=== PATIENT | female | born 1960 | race Caucasian/White ===

== ENCOUNTER → 2017-12-05 | Outpatient (CLI) | payer BC | END | disposition home or self-care (01) | LOC: Rad HDHVI 14:01 | PROVIDERS: ATTEND Internal Medicine Cardiovascular Disease | DX: E11.21 Type 2 diabetes mellitus with diabetic nephropathy (principal); I73.9 Peripheral vascular disease, unspecified; R07.89 Other chest pain; M54.5 Low back pain | CPT/HCPCS: 93306; 93926 ==

== ENCOUNTER → 2017-12-18 | Outpatient (CLI) | payer BC | END | disposition home or self-care (01) | LOC: Rad HDHVI 12:32 | PROVIDERS: ATTEND Internal Medicine Cardiovascular Disease | DX: M25.551 Pain in right hip (principal); M25.552 Pain in left hip ==

== ENCOUNTER → 2018-10-08 | Outpatient (CLI) | payer BC ==
[2018-10-08 12:36] LABS: Basophils # (auto) 0.1 uL; Basophils % (auto) 0.8 % (0.0-2.0); Eosinophils # (auto) 0.2 uL; Eosinophils % (auto) 2.3 % (0.0-7.0); Hematocrit 39.3 % (36.0-46.0); Hemoglobin 13.2 g/dL (12.2-16.2); Lymphocytes % (auto) 26.9 % (10.0-50.0); Mean Corpuscular Hemoglobin 30.4 pg (28.0-32.0); Mean Corpuscular Hgb Conc. 33.5 g/dL (32.0-36.0); Mean Corpuscular Volume 90.7 fL (80.0-100.0); Monocytes # (auto) 0.7 uL; Monocytes % (auto) 9.2 % (0.0-12.0); Neutrophils # (auto) 4.4 uL; Neutrophils % (auto) 60.8 % (37.0-80.0); Platelet Count (auto) 173 10^3/uL (140-450); Red Blood Cells 4.33 10^6/uL (4.0-5.20); White Blood Cell 7.3 10^3/uL (4.4-10.8)
[2018-10-08 12:48] LABS: Urine Blood Negative /uL (Negative); Urine Specific Gravity 1.014 (1.001-1.035)
[2018-10-08 13:31] LABS: Potassium 3.9 mmol/L (3.5-5.1)
[2018-10-08 13:32] LABS: Free T4 (Free Thyroxine) 1.25 ng/dL (0.89-1.76)
[2018-10-08 13:51] LABS: Albumin 3.2 g/dL (3.4-5.0); BUN/Creatinine Ratio 15.9; Bilirubin, Total 0.6 mg/dL (0.2-1.0); Calcium 8.6 mg/dL (8.5-10.1); Total Protein 7.5 g/dL (6.4-8.2)
== END | disposition home or self-care (01) ==
LOC: LAB 09:03
PROVIDERS: ATTEND Internal Medicine Cardiovascular Disease
DX: E11.22 Type 2 diabetes mellitus with diabetic chronic kidney disease (principal); N18.4 Chronic kidney disease, stage 4 (severe); N25.81 Secondary hyperparathyroidism of renal origin; E03.9 Hypothyroidism, unspecified; E11.9 Type 2 diabetes mellitus without complications; E55.9 Vitamin D deficiency, unspecified; D51.9 Vitamin B12 deficiency anemia, unspecified; N39.0 Urinary tract infection, site not specified
CPT/HCPCS: 36415; 80053; 80061; 80069; 81003; 82043; 82306; 82607; 83036; 83970; 84439; 84443; 85025; 87086

== ENCOUNTER → 2018-12-31 | Outpatient (CLI) | payer BC ==
[2018-12-31 16:20] LABS: Basophils # (auto) 0.1 uL; Basophils % (auto) 1.2 % (0.0-2.0); Eosinophils # (auto) 0.2 uL; Eosinophils % (auto) 2.7 % (0.0-7.0); Hematocrit 36.9 % (36.0-46.0); Hemoglobin 12.3 g/dL (12.2-16.2); Lymphocytes # (auto) 1.5 uL; Lymphocytes % (auto) 26.7 % (10.0-50.0); Mean Corpuscular Hemoglobin 30.8 pg (28.0-32.0); Mean Corpuscular Hgb Conc. 33.4 g/dL (32.0-36.0); Mean Corpuscular Volume 92.2 fL (80.0-100.0); Monocytes # (auto) 0.5 uL; Monocytes % (auto) 8.9 % (0.0-12.0); Neutrophils # (auto) 3.4 uL; Neutrophils % (auto) 60.5 % (37.0-80.0); Platelet Count (auto) 196 10^3/uL (140-450); Red Cell Distribution Width 14.3 % (11.8-14.3); White Blood Cell 5.6 10^3/uL (4.4-10.8)
[2018-12-31 16:32] LABS: BUN/Creatinine Ratio 15.9; Calcium 9.6 mg/dL (8.5-10.1); Phosphorus 4.1 mg/dL (2.5-4.90); Potassium 4.3 mmol/L (3.5-5.1); Uric Acid 4.1 mg/dL (2.6-6.0)
== END | disposition home or self-care (01) ==
LOC: LAB 11:27
PROVIDERS: ATTEND Internal Medicine Cardiovascular Disease
DX: E11.21 Type 2 diabetes mellitus with diabetic nephropathy (principal); E11.22 Type 2 diabetes mellitus with diabetic chronic kidney disease; N18.4 Chronic kidney disease, stage 4 (severe); M10.9 Gout, unspecified; N25.81 Secondary hyperparathyroidism of renal origin
CPT/HCPCS: 36415; 80069; 82043; 82306; 83036; 83970; 84550; 85025

== ENCOUNTER → 2019-04-18 | Outpatient (CLI) | payer BC ==
[2019-04-18 11:48] LABS: Basophils # (auto) 0.1 uL; Basophils % (auto) 0.7 % (0.0-2.0); Eosinophils # (auto) 0.1 uL; Eosinophils % (auto) 1.4 % (0.0-7.0); Hematocrit 37.9 % (36.0-46.0); Hemoglobin 13.1 g/dL (12.2-16.2); Lymphocytes # (auto) 1.9 uL; Lymphocytes % (auto) 26.3 % (10.0-50.0); Mean Corpuscular Hgb Conc. 34.6 g/dL (32.0-36.0); Mean Corpuscular Volume 92.6 fL (80.0-100.0); Monocytes # (auto) 0.7 uL; Monocytes % (auto) 9.4 % (0.0-12.0); Neutrophils # (auto) 4.6 uL; Neutrophils % (auto) 62.2 % (37.0-80.0); Platelet Count (auto) 170 10^3/uL (140-450); Red Blood Cells 4.09 10^6/uL (4.0-5.20); Red Cell Distribution Width 14.2 % (11.8-14.3); White Blood Cell 7.3 10^3/uL (4.4-10.8)
[2019-04-18 11:59] LABS: Chloride 106 mmol/L (98-107); Potassium 4.3 mmol/L (3.5-5.1); Sodium 137 mmol/L (136-145)
[2019-04-18 12:10] LABS: Alanine Aminotransferase 29 U/L (13-56); Albumin 3.1 g/dL (3.4-5.0); Alkaline Phosphatase 131 U/L (45-117); Anion Gap 10 (5-15); Aspartate Aminotransferase 16 U/L (15-37); BUN/Creatinine Ratio 15.3; Bilirubin, Total 0.3 mg/dL (0.2-1.0); Blood Urea Nitrogen 33 mg/dL (7-18); Calcium 8.8 mg/dL (8.5-10.1); Carbon Dioxide 21 mmol/L (21-32); Cholesterol 92 mg/dL (< 200); GFR African American 30 mL/min; GFR Non-African American 25 mL/min; Glucose 334 mg/dL (74-106); HDL Cholesterol 27 mg/dL (40-59); Phosphorus 3.9 mg/dL (2.5-4.90); Total Protein 7.3 g/dL (6.4-8.2); Triglycerides 412 mg/dL (< 150)
== END | disposition home or self-care (01) ==
LOC: LAB 10:57
PROVIDERS: ATTEND Internal Medicine Cardiovascular Disease
DX: I12.9 Hypertensive chronic kidney disease with stage 1 through stage 4 chronic kidney disease, or unspecified chronic kidney disease (principal); E11.22 Type 2 diabetes mellitus with diabetic chronic kidney disease; N18.4 Chronic kidney disease, stage 4 (severe); M1A.39X0 Chronic gout due to renal impairment, multiple sites, without tophus (tophi)
CPT/HCPCS: 36415; 80053; 80061; 80069; 82043; 83036; 85025

== ENCOUNTER → 2019-06-06 | Outpatient (CLI) | payer BC ==
[2019-06-06 12:00] LABS: Urine Blood Negative /uL (Negative); Urine Specific Gravity 1.013 (1.001-1.035)
[2019-06-06 12:05] LABS: Basophils # (auto) 0.1 uL; Basophils % (auto) 0.8 % (0.0-2.0); Eosinophils # (auto) 0.1 uL; Eosinophils % (auto) 1.8 % (0.0-7.0); Hematocrit 38.8 % (36.0-46.0); Hemoglobin 12.9 g/dL (12.2-16.2); Lymphocytes # (auto) 2.1 uL; Lymphocytes % (auto) 28.5 % (10.0-50.0); Mean Corpuscular Hemoglobin 31.6 pg (28.0-32.0); Mean Corpuscular Hgb Conc. 33.3 g/dL (32.0-36.0); Mean Corpuscular Volume 94.7 fL (80.0-100.0); Monocytes # (auto) 0.7 uL; Monocytes % (auto) 9.3 % (0.0-12.0); Neutrophils # (auto) 4.4 uL; Neutrophils % (auto) 59.6 % (37.0-80.0); Nucleated Red Blood Cells % 0.1 %; Platelet Count (auto) 184 10^3/uL (140-450); Red Cell Distribution Width 14.1 % (11.8-14.3); White Blood Cell 7.5 10^3/uL (4.4-10.8)
[2019-06-06 12:10] LABS: Albumin 3.3 g/dL (3.4-5.0); Calcium 8.9 mg/dL (8.5-10.1); Potassium 4.6 mmol/L (3.5-5.1)
[2019-06-06 12:16] LABS: BUN/Creatinine Ratio 19.5; Bilirubin, Total 0.3 mg/dL (0.2-1.0); Total Protein 7.7 g/dL (6.4-8.2)
[2019-06-06 12:21] LABS: Free T4 (Free Thyroxine) 0.82 ng/dL (0.89-1.76)
== END | disposition home or self-care (01) ==
LOC: LAB 09:56
PROVIDERS: ATTEND Internal Medicine Cardiovascular Disease
DX: Z00.00 Encounter for general adult medical examination without abnormal findings (principal); E03.9 Hypothyroidism, unspecified; K90.9 Intestinal malabsorption, unspecified; N39.0 Urinary tract infection, site not specified; D51.9 Vitamin B12 deficiency anemia, unspecified; E11.21 Type 2 diabetes mellitus with diabetic nephropathy; Z79.899 Other long term (current) drug therapy
CPT/HCPCS: 36415; 80053; 80061; 81003; 82306; 82607; 83036; 84439; 84443; 85025

== ENCOUNTER → 2019-12-30 | Outpatient (CLI) | payer BC | END | disposition home or self-care (01) | LOC: LAB 11:14 | PROVIDERS: ATTEND Internal Medicine Cardiovascular Disease | DX: E11.9 Type 2 diabetes mellitus without complications (principal); Z79.899 Other long term (current) drug therapy | CPT/HCPCS: 36415; 83036 ==

== ENCOUNTER → 2022-08-08 | Outpatient (CLI) | payer MEDICAID, MEDICARE | END | disposition home or self-care (01) | LOC: Rad HDHVI 16:02 | PROVIDERS: ATTEND Internal Medicine Cardiovascular Disease | DX: R16.0 Hepatomegaly, not elsewhere classified (principal); K80.20 Calculus of gallbladder without cholecystitis without obstruction; I70.0 Atherosclerosis of aorta; J84.89 Other specified interstitial pulmonary diseases; M47.26 Other spondylosis with radiculopathy, lumbar region; M51.16 Intervertebral disc disorders with radiculopathy, lumbar region; M85.89 Other specified disorders of bone density and structure, multiple sites; M48.061 Spinal stenosis, lumbar region without neurogenic claudication; M25.78 Osteophyte, vertebrae; K57.90 Diverticulosis of intestine, part unspecified, without perforation or abscess without bleeding; R06.02 Shortness of breath | CPT/HCPCS: 71250; 72128; 72131; 74176 ==

== ENCOUNTER → 2023-06-01 | Outpatient (CLI) | payer MEDICARE, MEDICAID | END | disposition home or self-care (01) | LOC: Rad HDHVI 09:43 | PROVIDERS: ATTEND Internal Medicine Cardiovascular Disease | DX: I08.1 Rheumatic disorders of both mitral and tricuspid valves (principal); I11.9 Hypertensive heart disease without heart failure; E78.5 Hyperlipidemia, unspecified | CPT/HCPCS: 93306 ==

== ENCOUNTER → 2023-06-13 | Outpatient (CLI) | payer MEDICARE, MEDICAID ==
[~2023-06-13] VITALS: Ht 170.2 cm; Wt 74.8 kg
[~2023-06-13] MED LIST: ADENOSINE 63 MG in GIVE UN-DILUTED 0 ML IV ONE; ADENOSINE 90 MG/30 ML INJ IV ONE
== END | disposition home or self-care (01) ==
LOC: Rad HDHVI 12:14
PROVIDERS: ATTEND Internal Medicine Cardiovascular Disease
DX: I11.0 Hypertensive heart disease with heart failure (principal); I50.43 Acute on chronic combined systolic (congestive) and diastolic (congestive) heart failure; E11.40 Type 2 diabetes mellitus with diabetic neuropathy, unspecified; R06.02 Shortness of breath; R00.2 Palpitations; E11.21 Type 2 diabetes mellitus with diabetic nephropathy
CPT/HCPCS: 78452; 93005; 96374; 96375; A9500; J0153

== ENCOUNTER → 2023-07-12 | Outpatient (CLI) | payer MEDICARE, MEDICAID ==
[~2023-07-12] MED LIST changes: -ADENOSINE 63 MG in GIVE UN-DILUTED 0 ML IV ONE; -ADENOSINE 90 MG/30 ML INJ IV ONE; +ALLO300T2 PO; +CARV25TA PO; +ERGO1CAP23 PO; +HYDR-4798 PO; +INSU1INJ19 SC; +METO-281 PO; +POM PO
[2023-07-12 12:25] VITALS: BP 151/69; PULSE 88; RESP 16; O2SAT 97
[2023-07-12 12:38] VITALS: BP 149/75; PULSE 88; RESP 16; O2SAT 97
== END | disposition home or self-care (01) ==
LOC: CHF HDHVI 12:18
PROVIDERS: ATTEND Internal Medicine Cardiovascular Disease
DX: Z01.818 Encounter for other preprocedural examination (principal); R06.02 Shortness of breath; R94.31 Abnormal electrocardiogram [ECG] [EKG]; R00.2 Palpitations; I25.5 Ischemic cardiomyopathy; I50.43 Acute on chronic combined systolic (congestive) and diastolic (congestive) heart failure
CPT/HCPCS: 36415; 80048; 85025; 85610; 85730; 93005; G0463

== ENCOUNTER 2023-07-13 07:12 | Day surgery (SDC) | payer MEDICARE, MEDICAID ==
[2023-07-12 14:04] LABS: Chloride 91 mmol/L (98-107); Potassium 4.3 mmol/L (3.5-5.1); Sodium 133 mmol/L (136-145)
[2023-07-12 14:05] LABS: Anion Gap 10 (5-15); Calcium 10.5 mg/dL (8.5-10.1); Carbon Dioxide 32 mmol/L (20-30)
[2023-07-12 14:06] LABS: Basophils # (auto) 0 10 ^3/uL (0-0.2); Eosinophils # (auto) 0.1 10 ^3/uL (0-0.8); Lymphocytes # (auto) 0.8 10 ^3/uL (0.4-5.4); Mean Corpuscular Volume 107.4 fL (80.0-100.0); Monocytes # (auto) 0.7 10 ^3/uL (0-1.3); Neutrophils # (auto) 5.8 10 ^3/uL (1.6-8.6); White Blood Cell 7.4 10^3/uL (4.4-10.8)
[2023-07-12 14:08] LABS: Basophils % (auto) 0.6 % (0.0-2.0); Hematocrit 35.5 % (36.0-46.0); Mean Corpuscular Hemoglobin 36.3 pg (28.0-32.0); Mean Corpuscular Hgb Conc. 33.8 g/dL (32.0-36.0); Monocytes % (auto) 9.9 % (0.0-12.0); Neutrophils % (auto) 77.5 % (37.0-80.0); Red Cell Distribution Width 13.8 % (11.8-14.3)
[2023-07-12 14:10] LABS: BUN/Creatinine Ratio 4.3 (10.0-20.0); Blood Urea Nitrogen 20 mg/dL (9-23); Glucose 212 mg/dL (74-106)
[2023-07-12 14:12] LABS: INR 1.02 (0.9-1.15); Partial Thromboplastin Time 27.2 SEC (24.5-34.5); Prothrombin Time 10.7 sec (9.3-11.8)
[2023-07-13] VITALS (8 sets, daily range): BP systolic 117–139; BP diastolic 69–80; PULSE 76–87; RESP 15–20; O2SAT 92–100
[~2023-07-13] VITALS: Ht 170.2 cm; Wt 80.7 kg
[2023-07-13] MEDS ORDERED: SODIUM CHL 0.9% 0 ML ONE (08:21)
[2023-07-13] MEDS ORDERED: fentaNYL CITRATE 100 MCG/2 ML VL ONE (08:21)
[2023-07-13] MEDS ORDERED: ANGIOMAX 250 MG VIAL IV ONE (08:21)
[2023-07-13] MEDS ORDERED: MIDAZOLAM HCL 2MG/2ML 2ml VIAL (1mg/ml) ONE (08:21)
[2023-07-13] MEDS ORDERED: IODIXANOL 320MG/ML 100ML BTL IV ONE (08:21)
[2023-07-13] MEDS ORDERED: IOHEXOL 350 MG/ML 100ML IJ ONE (08:58)
[2023-07-13] MEDS ORDERED: LIDOCAINE 2%HCL (LOCAL ANESTH.) INJ 20ML MDV ONE (08:58)
== END 2023-07-13 11:05 | disposition home or self-care (01) ==
LOC: CATH 07:12
PROVIDERS: ATTEND Internal Medicine Cardiovascular Disease
DX: R06.02 Shortness of breath (principal); I27.20 Pulmonary hypertension, unspecified; E11.22 Type 2 diabetes mellitus with diabetic chronic kidney disease; I12.0 Hypertensive chronic kidney disease with stage 5 chronic kidney disease or end stage renal disease; N18.6 End stage renal disease; E11.40 Type 2 diabetes mellitus with diabetic neuropathy, unspecified; E11.21 Type 2 diabetes mellitus with diabetic nephropathy; E78.5 Hyperlipidemia, unspecified; Z79.899 Other long term (current) drug therapy; Z82.49 Family history of ischemic heart disease and other diseases of the circulatory system; Z79.84 Long term (current) use of oral hypoglycemic drugs
CPT/HCPCS: 36415; 80048; 85025; 85610; 85730; C1757; C1769; C1894; J1644; J2250; J3010; Q9967; 93460; 99152

== ENCOUNTER → 2023-09-14 | Outpatient (CLI) | payer MEDICARE, MEDICAID | END | disposition home or self-care (01) | LOC: Rad HDHVI 13:35 | PROVIDERS: ATTEND Internal Medicine Cardiovascular Disease | DX: I10 Essential (primary) hypertension (principal); R07.89 Other chest pain | CPT/HCPCS: 93306 ==

== ENCOUNTER → 2023-12-19 | Outpatient (CLI) | payer MEDICARE, MEDICAID ==
[~2023-12-19] MED LIST changes: +CARV-217 PO; -CARV25TA PO
== END | disposition home or self-care (01) ==
LOC: Rad HDHVI 10:02
PROVIDERS: ATTEND Internal Medicine Cardiovascular Disease
DX: R06.02 Shortness of breath (principal)
CPT/HCPCS: 71046

== ENCOUNTER → 2024-02-08 | Outpatient (CLI) | payer MEDICARE, MEDICAID | END | disposition home or self-care (01) | LOC: Rad HDHVI 15:03 | PROVIDERS: ATTEND Internal Medicine Cardiovascular Disease | DX: I10 Essential (primary) hypertension (principal) | CPT/HCPCS: 93306 ==

== ENCOUNTER 2024-05-21 12:12 | Inpatient (IN) | payer MEDICARE ==
[~2024-05-21] VITALS: Ht 171.4 cm; Wt 82.0 kg
--- NOTE | 2024-05-21 14:13 | DVHPN2 ---
Progress Note - Dictate Date Seen: May 21, 2024 Medical Necessity Reason Pt with a Central, PICC or Fol: No Subjective PT PRESENTED TO OFFICE WITH SEVERE ABNL PAIN RIGHT UPPER QUADRANT TENDERNESS CT CONSISTENT WITH CHOLELITHIASIS PMH; HTN PAH DIABETES objective HEENT SCLERA ANICTERIC FUNDI NL EOMI NECK SUPPLE NO ADENOPATHY CAROTID 2+ NL UPSTROKE NO JVD PUL CLEAR CV RR ABD RUQ TENDERNESS NO REBOUND NEURO INTACT Problem List RIGHT UPPER QUADRANT TENDERNESS CT CONSISTENT WITH CHOLELITHIASIS PMH; HTN PAH DIABETES ESRD ON HD Assessment/Plan ANTIBIOTIC SURGICAL CONSULT PAIN MANAGEMENT SSI Plan discussed with: Patient JOSSY BANEGAS MD May 21, 2024 14:13
[2024-05-21] MEDS ORDERED: CARV12.544 PO (14:41)
[2024-05-21] MEDS ORDERED: INSU1INJ19 SC (14:41)
[2024-05-21] MEDS ORDERED: RIOC1TAB15 PO (14:41)
[2024-05-21] MEDS ORDERED: PIPERACILLIN-TAZO 4.5GM 100 ML IV SCH ×3 (14:45→22:00)
[2024-05-21] MEDS ORDERED: MACI1TAB2 PO (14:54)
[2024-05-21] MEDS ORDERED: FURO1TAB77 PO (14:54)
[2024-05-21] MEDS ORDERED: HYDROcodone-ACET 7.5/325MG TAB PO PRN (15:00)
[2024-05-21] MEDS ORDERED: CALC667C PO (15:27)
[2024-05-21] MEDS ORDERED: PIPERACILLIN-TAZO 4.5GM 100 ML IV ONE (15:30)
[2024-05-21 15:33] VITALS: PULSE 105; RESP 19; O2SAT 94
[2024-05-21] MEDS ORDERED: DEXTROSE (50%) 50ML SYRG IV PRN (16:15)
[2024-05-21 17:00] VITALS: BP 130/57; PULSE 97; RESP 17; TEMP 98.5; O2SAT 93
[2024-05-21] MEDS: ACCU-CHEK COMFORT CURVE STRIP VI SCH (17:50)
[2024-05-21] MEDS: D5W/SOD CHL 0.45% 1,000 ML IV SCH (17:51)
[2024-05-21] MEDS: PIPERACILLIN-TAZO 4.5GM 100 ML IV ONE (17:51)
[2024-05-21] MEDS: InsuLIN REG 1unit/0.01ml Soln (100units/ml) SC SCH ×2 (17:53→22:09)
--- NOTE | 2024-05-21 18:16 | DVH ---
EXAM: XY CHEST PORTABLE TECHNIQUE: Single frontal chest radiograph CLINICAL HISTORY: acute cholecystitis COMPARISON: None Findings/Impression: Frontal chest radiograph demonstrates no acute osseous or superficial soft tissue abnormalities. The trachea is midline. The cardiac silhouette and mediastinum are within normal limits. Mild low lung volumes with bronchovascular crowding. No pneumothorax, pleural effusions, or consolidations.
[2024-05-21 18:38] LABS: Eosinophils # (auto) 0.1 10 ^3/uL (0-0.8); Hemoglobin 10.7 g/dL (12.2-16.2); Lymphocytes # (auto) 1.2 10 ^3/uL (0.4-5.4); Monocytes # (auto) 1.2 10 ^3/uL (0-1.3)
[2024-05-21 18:39] LABS: Basophils # (auto) 0 10 ^3/uL (0-0.2); Basophils % (auto) 0.3 % (0.0-2.0); Eosinophils % (auto) 0.8 % (0.0-7.0); Hematocrit 31.9 % (36.0-46.0); Lymphocytes % (auto) 10.4 % (10.0-50.0); Mean Corpuscular Hemoglobin 34.2 pg (28.0-32.0); Mean Corpuscular Hgb Conc. 33.6 g/dL (32.0-36.0); Mean Corpuscular Volume 101.8 fL (80.0-100.0); Monocytes % (auto) 10.5 % (0.0-12.0); Platelet Count (auto) 211 10^3/uL (140-450); Red Blood Cells 3.13 10^6/uL (4.0-5.20); Red Cell Distribution Width 15.7 % (11.8-14.3); White Blood Cell 11.5 10^3/uL (4.4-10.8)
[2024-05-21 18:46] LABS: Albumin 3.8 g/dL (3.2-4.8); Alkaline Phosphatase 137 U/L (46-116); Anion Gap 10 (5-15); Aspartate Aminotransferase < 8 U/L (13-40); BUN/Creatinine Ratio 5.5 (10.0-20.0); Blood Urea Nitrogen 41 mg/dL (9-23); Calcium 10.2 mg/dL (8.7-10.4); Carbon Dioxide 25 mmol/L (20-31); Chloride 94 mmol/L (98-107); Glucose 251 mg/dL (74-106); Potassium 3.9 mmol/L (3.5-5.1); Sodium 129 mmol/L (136-145)
[2024-05-21 18:47] LABS: Bilirubin, Total < 0.2 mg/dL (0.2-1.0); Total Protein 6.8 g/dL (5.7-8.2)
[2024-05-21 18:48] LABS: Alanine Aminotransferase < 9 U/L (7-40)
[2024-05-21 18:49] LABS: INR 1.02 (0.9-1.15); Partial Thromboplastin Time 28.4 SEC (24.5-34.5); Prothrombin Time 10.8 sec (9.3-11.8)
[2024-05-21 20:00] VITALS: PULSE 100; RESP 18; O2SAT 90
[2024-05-21 21:00] VITALS: BP 129/64; PULSE 100; RESP 18; TEMP 98.7; O2SAT 90
[2024-05-21] MEDS: PIPERACILLIN-TAZOB 3.375GM 100 ML IV SCH (21:51)
[2024-05-21] MEDS: CARVEDILOL 12.5 MG TAB PO SCH (21:55)
[2024-05-21] MEDS: METOCLOPRAMIDE HCL 10 MG TAB PO SCH (21:56)
[2024-05-21] MEDS: ADEMPAS 0.5 MG PO SCH (22:11)
[2024-05-22 06:15] VITALS: BP 130/61; PULSE 87; RESP 18; TEMP 98.6; O2SAT 94
[2024-05-22] MEDS: glipiZIDE 5 MG TAB PO SCH (06:21)
--- NOTE | 2024-05-22 10:20 | DVH ---
ULTRASOUND ABDOMEN LIMITED INDICATION: Abdominal pain.. TECHNIQUE: Multiple real-time sonographic images of the abdomen were obtained. COMPARISON: CT abdomen 05/21/2024 FINDINGS: The visualized liver parenchyma appears echogenic . The liver measures 20.8 cm. No discrete hepa tic lesion or intrahepatic biliary ductal dilatation is identified. The gallbladder appears contracted with gallstones. There is acoustic shadowing in the gallbladder fo ssa. There is no obvious pericholecystic fluid. The common duct is not adequately seen. The right kidney measures 10.6 cm length. Left kidney measures 10.2 cm. Both renal cortex appear thi n. There is a 0.8 cm cyst in the midpole of the right kidney. No sonographic evidence of nephrolithia sis or hydronephrosis. Pancreas is obscured by bowel gas. IMPRESSION: 1. Hepatomegaly with diffuse hepatic steatosis. 2. Contracted gallbladder with cholelithiasis. 3. The bilateral renal cortex appear thin. 4. 0.8 cm right midpole renal cyst. HS:Y
[2024-05-22 10:30] VITALS: BP 129/61; PULSE 98; RESP 17; TEMP 98.1; O2SAT 99
[2024-05-22] MEDS: B-COMPLEX W/ C & FOLIC ACID(NEPHROVITE TAB) PO SCH (11:00)
[2024-05-22] MEDS: ALLOPURINOL 100 MG TAB PO SCH (11:00)
[2024-05-22 13:07] VITALS: BP 138/70; PULSE 89; RESP 16; TEMP 98.3; O2SAT 96
--- NOTE | 2024-05-22 13:23 | DVHPN2 ---
Progress Note - Dictate Date Seen: May 22, 2024 Medical Necessity Reason Pt with a Central, PICC or Fol: No Subjective PT PRESENTED TO OFFICE WITH SEVERE ABNL PAIN RIGHT UPPER QUADRANT TENDERNESS CT CONSISTENT WITH CHOLELITHIASIS PMH; HTN PAH DIABETES ESRD ON HD vital signs Vital Sign Date Time Temp Pulse Resp B/P (MAP) Pulse Ox O2 Delivery O2 Flow Rate FiO2 05/22/24 13:07 98.3 89 16 138/70 (92) 96 98.3 05/22/24 08:00 Room Air* 0 21 Total Intake and Output 05/21/24 05/21/24 05/22/24 15:00 23:00 07:00 Intake Total 300 ml 400 ml Balance 300 ml 400 ml medications Current Medications Medications Dose Ordered Sig/Hector Route Start Time Stop Time Status Last Admin Dose Admin Piperacillin Sod/ Tazobactam Sod 100 ml @ 100 mls/hr Q8HR IV 05/21/24 14:45 UNV Carvedilol 12.5 mg BID PO 05/21/24 22:00 05/22/24 11:00 12.5 MG Multivit/Ca Carb/ B Cmplx/FA/Prenat 1 tab DAILY PO 05/22/24 10:00 05/22/24 11:00 1 TAB Allopurinol 300 mg DAILY PO 05/22/24 10:00 05/22/24 11:00 300 MG Metoclopramide HCl 10 mg BID PO 05/21/24 22:00 05/22/24 11:00 10 MG Patient Own Medication 1 BID PO 05/21/24 22:00 05/22/24 11:00 1 Patient Own Medication 1 DAILY PO 05/22/24 10:00 05/22/24 11:00 1 Glipizide 2.5 mg QAM PO 05/22/24 07:00 05/22/24 06:21 2.5 MG Dextrose/Sodium Chloride 1,000 ml @ 50 mls/hr Q20H IV 05/21/24 16:15 05/21/24 17:51 50 MLS/HR Diagnostic Test (Pha) 1 strip ACHS 05/21/24 17:00 05/22/24 11:07 1 STRIP Insulin Human Regular HS SC 05/21/24 22:00 05/21/24 22:09 8 UNITS Insulin Human Regular AC SC 05/21/24 17:00 05/22/24 11:31 6 UNITS Dextrose 50 ml UD PRN IV 05/21/24 16:15 Acetaminophen/ Hydrocodone Bitart 1 tab TIDP PRN PO 05/21/24 16:15 Piperacillin Sod/ Tazobactam Sod 100 ml @ 25 mls/hr Q12HR IV 05/21/24 22:00 05/22/24 11:00 25 MLS/HR objective HEENT SCLERA ANICTERIC FUNDI NL EOMI NECK SUPPLE NO ADENOPATHY CAROTID 2+ NL UPSTROKE NO JVD PUL CLEAR CV RR ABD RUQ TENDERNESS NO REBOUND NEURO INTACT laboratory and microbiology Laboratory Tests 05/21/24 18:02 Test 05/21/24 18:02 Range/Units Serum Glucose 251 H 74-106 mg/dL Problem List RIGHT UPPER QUADRANT TENDERNESS CT CONSISTENT WITH CHOLELITHIASIS PMH; HTN PAH DIABETES ERSD ON HD HYPONATREMIA Assessment/Plan ANTIBIOTIC SURGICAL CONSULT PAIN MANAGEMENT SSI LEUKOCYTOSIS Plan discussed with: Patient JOSSY BANEGAS MD May 22, 2024 13:23
[2024-05-22] MEDS: SODIUM CHL 0.9% 1000 ML BAG XX ONE (15:00)
--- NOTE | 2024-05-22 15:02 | DVHINCON2 ---
Date of service: May 22, [address] Meek Reason for Consultation Dialysis History of Present Illness 63 Y/O F with history of ESRD on HD via Lt arm AVF, DM,HTN, anemia of CKD was sent from PCP office for cholecystectomy. She was complaining of RUQ abdominal pain, and also had tenderness. CT A/P consistent with cholecystitis. Dialysis schedule is [facility]. She had her last dialysis on Monday. Nephrology consulted for dialysis Past Medical History ESRD DM HTN Anemia Past Surgical History AVF creation Allergies: Coded Allergies: Codeine (Verified Allergy, Unknown, 07/12/23) Home Meds Reported Medications Calcium Acetate (Phosphate Bin (Calcium Acetate) 667 Mg Cap, 1334 MG PO TIDWM, CAP WITH MEALS 05/21/24 Macitentan (Opsumit) 10 Mg Tab, 10 MG PO DAILY, TAB 05/21/24 Furosemide (Furosemide 80 mg) 1 Tab Tab, 1 TAB PO DAILY, TAB 05/21/24 Carvedilol (Carvedilol) 12.5 Mg Tab, 12.5 MG PO Q12HR for 30 Days, MG 05/21/24 Insulin Glargine (Basaglar Kwikpen) 100 Unit/Ml Inj, 10 UNIT SC QAM, INJ 05/21/24 Ri[place]igu[place] Base (Adempas) 2.5 Mg Tab, 5 MG PO TID, TAB 05/21/24 Ergocalciferol (VITAMIN D 29583 UNIT) 50,000 [place], [address] UNIT PO, CAP 07/12/23 Insulin Glargine (Basaglar Kwikpen) 100 Unit/Ml Inj, 20 UNIT SC DAILY for DIABETES, INJ 07/12/23 Metoclopramide Hcl (Reglan) 10 Mg Tab, 10 MG PO BID for GERD, TAB 07/12/23 Allopurinol (Allopurinol) 300 Mg Tab, 300 MG PO DAILY for GOUT, MG 07/12/23 Patients Own Medication (PATIENTS OWN MEDICATION) ., 1 PO DAILY for SUPPLEMENT PTS OWN MED-OBTAIN FROM PT AND SEND TO RX DRUG: FREQ: RX# EXP: DATE DISP: TECH: RPH: 07/12/23 Carvedilol (Coreg) 25 Mg Tab, 1 TAB PO DAILY for HTN, #60 TAB 5 Refills 07/12/23 Hydrocodone-Acetaminophen (Hydrocodone Bitartrate/AC 10-325 mg) 1 Tab Tab, 1 TAB PO TIDP PRN for BACK PAIN, TAB 07/12/23 Current Medications Current Medications Medications (Trade) Dose Ordered Sig/Hector Route PRN Reason Start Time Stop Time Status Last Admin Carvedilol (Coreg Tablet) 12.5 mg BID PO 05/21/24 22:00 05/22/24 11:00 Multivit/Ca Carb/ B Cmplx/FA/Prenat (Nephro-Aydin Tablet) 1 tab DAILY PO 05/22/24 10:00 05/22/24 11:00 Allopurinol (Zyloprim Tablet) 300 mg DAILY PO 05/22/24 10:00 05/22/24 11:00 Metoclopramide HCl (Reglan Tablet) 10 mg BID PO 05/21/24 22:00 05/22/24 11:00 Patient Own Medication 1 BID PO 05/21/24 22:00 05/22/24 11:00 Patient Own Medication 1 DAILY PO 05/22/24 10:00 05/22/24 11:00 Glipizide (Glucotrol Tablet) 2.5 mg QAM PO 05/22/24 07:00 05/22/24 06:21 Piperacillin Sod/ Tazobactam Sod 100 ml @ 100 mls/hr Q8HR IV 05/21/24 22:00 05/21/24 16:46 DC Dextrose/Sodium Chloride 1,000 ml @ 50 mls/hr Q20H IV 05/21/24 16:15 05/21/24 17:51 Diagnostic Test (Pha) (Accu-Chek Comfort Curve T) 1 strip ACHS 05/21/24 17:00 05/22/24 11:07 Insulin Human Regular (InsuLIN R) HS SC 05/21/24 22:00 05/21/24 22:09 Insulin Human Regular (InsuLIN R) AC SC 05/21/24 17:00 05/22/24 11:31 Dextrose 50 ml UD PRN IV Blood Sugar LESS THAN 60 05/21/24 16:15 Acetaminophen/ Hydrocodone Bitart ([place] 5/325MG Tab) 1 tab TIDP PRN PO MODERATE PAIN (4-6 PAIN SCALE) 05/21/24 16:15 Piperacillin Sod/ Tazobactam Sod 100 ml @ 100 mls/hr Q8H IV 05/21/24 17:00 05/21/24 17:05 DC Piperacillin Sod/ Tazobactam Sod 100 ml @ 25 mls/hr Q12HR IV 05/21/24 22:00 05/22/24 11:00 Family History: Hypertension G8 MOTHER Review of Systems as per HPI, all other systems were reviewed and are negative. H&P Exam Vital Signs/I&O Vital Sign Date Time Temp Pulse Resp B/P (MAP) Pulse Ox O2 Delivery O2 Flow Rate FiO2 05/22/24 13:07 98.3 89 16 138/70 (92) 96 98.3 05/22/24 08:00 Room Air* 0 21 Intake and Output 05/21/24 05/22/24 19:00 07:00 Intake Total 300 ml 400 ml Balance 300 ml 400 ml Intake Oral 200 ml 300 ml IV Total 100 ml 100 ml Physical Exam Gen: NAD, AAOX3 HEENT: NC,AT Lungs: CTA b/l Cardiac: RRR, no murmur Abd: Soft, no distention Ext: no edema + Lt arm AVF Labs/Diagnostic Data Labs/Diagnostic Data Laboratory Tests Test 05/22/24 10:45 05/22/24 06:14 05/21/24 21:58 05/21/24 18:02 Range/Units POC Glucose 206 H 282 H 303 H 70-106 mg/dl White Blood Count 11.5 H 4.4-10.8 10^3/uL Red Blood Count 3.13 L 4.0-5.20 10^6/uL Hemoglobin 10.7 L 12.2-16.2 g/dL Hematocrit 31.9 L 36.0-46.0 % Mean Corpuscular Volume 101.8 H 80.0-100.0 fL Mean Corpuscular Hemoglobin 34.2 H 28.0-32.0 pg Mean Corpuscular Hemoglobin Concent 33.6 32.0-36.0 g/dL Red Cell Distribution Width 15.7 H 11.8-14.3 % Platelet Count 211 140-450 10^3/uL Mean Platelet Volume 6.8 L 6.9-10.8 fL Neutrophils (%) (Auto) 78.0 37.0-80.0 % Lymphocytes (%) (Auto) 10.4 10.0-50.0 % Monocytes (%) (Auto) 10.5 0.0-12.0 % Eosinophils (%) (Auto) 0.8 0.0-7.0 % Basophils (%) (Auto) 0.3 0.0-2.0 % Neutrophils # (Auto) 9.0 H 1.6-8.6 10 ^3/uL Lymphocytes # (Auto) 1.2 0.4-5.4 10 ^3/uL Monocytes # (Auto) 1.2 0-1.3 10 ^3/uL Eosinophils # (Auto) 0.1 0-0.8 10 ^3/uL Basophils # (Auto) 0 0-0.2 10 ^3/uL Nucleated Red Blood Cells 0.0 % Prothrombin Time 10.8 9.3-11.8 sec Prothrombin Time INR 1.02 0.9-1.15 Activated Partial Thromboplast Time 28.4 24.5-34.5 SEC Sodium Level 129 L 136-145 mmol/L Potassium Level 3.9 3.5-5.1 mmol/L Chloride Level 94 L 98-107 mmol/L Carbon Dioxide Level 25 20-31 mmol/L Anion Gap 10 5-15 Blood Urea Nitrogen 41 H 9-23 mg/dL Creatinine 7.43 H 0.550-1.02 mg/dL Glomerular Filtration Rate Calc 6 >90 mL/min BUN/Creatinine Ratio 5.5 L 10.0-20.0 Serum Glucose 251 H 74-106 mg/dL Calcium Level 10.2 8.7-10.4 mg/dL Total Bilirubin < 0.2 L 0.2-1.0 mg/dL Aspartate Amino Transferase (AST) < 8 L 13-40 U/L Alanine Aminotransferase (ALT) < 9 7-40 U/L Alkaline Phosphatase 137 H 46-116 U/L Total Protein 6.8 5.7-8.2 g/dL Albumin 3.8 3.2-4.8 g/dL Test 05/21/24 16:53 Range/Units POC Glucose 286 H 70-106 mg/dl Microbiology Date/Time Source Procedure Growth Status 05/21/24 22:16 Nose MRSA Screen - Final Complete Assessment Assessment: ESRD on HD via Lt arm AVF Cholecystitis DM HTN Anemia of CKD Hyperphosphatemia Secondary hyperparathyroidism Hyponatremia Metabolic acidosis Hyperuricemia Plan: HD schedule is MWF scheduled for HD for today. goal 2.5 L UF last HD was on Monday at [facility] continue IV antibiotics per primary team Coreg 12.5 mg PO BID Continue Allopurinol DEVI post HD as needed. Hb goal 10-11 g/dl Plan discussed with: Patient GERALDO RILEY MD May 22, 2024 15:02
[2024-05-22 16:41] VITALS: BP 158/71; PULSE 86; RESP 18; TEMP 97.5; O2SAT 95
[2024-05-22] MEDS ORDERED: LIDOCAINE 1% HCL (LOCAL ANESTH.) INJ 20ML MDV ID PRN (16:45)
--- NOTE | 2024-05-22 17:50 | DVHINCON2 ---
Date of service: May 22, 2024 Family History: Hypertension G8 MOTHER Allergies: Coded Allergies: Codeine (Verified Allergy, Unknown, 07/12/23) Home Meds Reported Medications Calcium Acetate (Phosphate Bin (Calcium Acetate) 667 Mg Cap, 1334 MG PO TIDWM, CAP WITH MEALS 05/21/24 Macitentan (Opsumit) 10 Mg Tab, 10 MG PO DAILY, TAB 05/21/24 Furosemide (Furosemide 80 mg) 1 Tab Tab, 1 TAB PO DAILY, TAB 05/21/24 Carvedilol (Carvedilol) 12.5 Mg Tab, 12.5 MG PO Q12HR for 30 Days, MG 05/21/24 Insulin Glargine (Basaglar Kwikpen) 100 Unit/Ml Inj, 10 UNIT SC QAM, INJ 05/21/24 Ri[place] Base (Adempas) 2.5 Mg Tab, 5 MG PO TID, TAB 05/21/24 Ergocalciferol (VITAMIN D 70247 UNIT) 50,000 [place], [address] UNIT PO, CAP 07/12/23 Insulin Glargine (Basaglar Kwikpen) 100 Unit/Ml Inj, 20 UNIT SC DAILY for DIABETES, INJ 07/12/23 Metoclopramide Hcl (Reglan) 10 Mg Tab, 10 MG PO BID for GERD, TAB 07/12/23 Allopurinol (Allopurinol) 300 Mg Tab, 300 MG PO DAILY for GOUT, MG 07/12/23 Patients Own Medication (PATIENTS OWN MEDICATION) ., 1 PO DAILY for SUPPLEMENT PTS OWN MED-OBTAIN FROM PT AND SEND TO RX DRUG: FREQ: RX# EXP: DATE DISP: TECH: [facility]: 07/12/23 Carvedilol (Coreg) 25 Mg Tab, 1 TAB PO DAILY for HTN, #60 TAB 5 Refills 07/12/23 Hydrocodone-Acetaminophen (Hydrocodone Bitartrate/AC 10-325 mg) 1 Tab Tab, 1 TAB PO TIDP PRN for BACK PAIN, TAB 07/12/23 Current Medications Current Medications Medications (Trade) Dose Ordered Sig/Hector Route PRN Reason Start Time Stop Time Status Last Admin Carvedilol (Coreg Tablet) 12.5 mg BID PO 05/21/24 22:00 05/22/24 11:00 Multivit/Ca Carb/ B Cmplx/FA/Prenat (Nephro-Aydin Tablet) 1 tab DAILY PO 05/22/24 10:00 05/22/24 11:00 Allopurinol (Zyloprim Tablet) 300 mg DAILY PO 05/22/24 10:00 05/22/24 11:00 Metoclopramide HCl (Reglan Tablet) 10 mg BID PO 05/21/24 22:00 05/22/24 11:00 Patient Own Medication 1 BID PO 05/21/24 22:00 05/22/24 11:00 Patient Own Medication 1 DAILY PO 05/22/24 10:00 05/22/24 11:00 Glipizide (Glucotrol Tablet) 2.5 mg QAM PO 05/22/24 07:00 05/22/24 06:21 Piperacillin Sod/ Tazobactam Sod 100 ml @ 100 mls/hr Q8HR IV 05/21/24 22:00 05/21/24 16:46 DC Insulin Human Regular (InsuLIN R) HS SC 05/21/24 22:00 05/21/24 22:09 Piperacillin Sod/ Tazobactam Sod 100 ml @ 25 mls/hr Q12HR IV 05/21/24 22:00 05/22/24 11:00 Lidocaine HCl (Xylocaine 1%) 1 ml ONCE PRN ID PRE-DIALYSIS NEEDLE INSERTION 05/22/24 16:45 Vital Signs Vital Signs Date Time Temp Pulse Resp B/P (MAP) Pulse Ox O2 Delivery O2 Flow Rate FiO2 05/22/24 16:41 97.5 86 18 158/71 (100) 95 97.5 05/22/24 08:00 Room Air* 0 21 Labs/Diagnostic Data Labs Test 05/22/24 16:40 05/21/24 18:02 Range/Units POC Glucose 134 H 70-106 mg/dl White Blood Count 11.5 H 4.4-10.8 10^3/uL Red Blood Count 3.13 L 4.0-5.20 10^6/uL Hemoglobin 10.7 L 12.2-16.2 g/dL Hematocrit 31.9 L 36.0-46.0 % Mean Corpuscular Volume 101.8 H 80.0-100.0 fL Mean Corpuscular Hemoglobin 34.2 H 28.0-32.0 pg Mean Corpuscular Hemoglobin Concent 33.6 32.0-36.0 g/dL Red Cell Distribution Width 15.7 H 11.8-14.3 % Platelet Count 211 140-450 10^3/uL Mean Platelet Volume 6.8 L 6.9-10.8 fL Neutrophils (%) (Auto) 78.0 37.0-80.0 % Lymphocytes (%) (Auto) 10.4 10.0-50.0 % Monocytes (%) (Auto) 10.5 0.0-12.0 % Eosinophils (%) (Auto) 0.8 0.0-7.0 % Basophils (%) (Auto) 0.3 0.0-2.0 % Neutrophils # (Auto) 9.0 H 1.6-8.6 10 ^3/uL Lymphocytes # (Auto) 1.2 0.4-5.4 10 ^3/uL Monocytes # (Auto) 1.2 0-1.3 10 ^3/uL Eosinophils # (Auto) 0.1 0-0.8 10 ^3/uL Basophils # (Auto) 0 0-0.2 10 ^3/uL Nucleated Red Blood Cells 0.0 % Prothrombin Time 10.8 9.3-11.8 sec Prothrombin Time INR 1.02 0.9-1.15 Activated Partial Thromboplast Time 28.4 24.5-34.5 SEC Sodium Level 129 L 136-145 mmol/L Potassium Level 3.9 3.5-5.1 mmol/L Chloride Level 94 L 98-107 mmol/L Carbon Dioxide Level 25 20-31 mmol/L Anion Gap 10 5-15 Blood Urea Nitrogen 41 H 9-23 mg/dL Creatinine 7.43 H 0.550-1.02 mg/dL Glomerular Filtration Rate Calc 6 >90 mL/min BUN/Creatinine Ratio 5.5 L 10.0-20.0 Serum Glucose 251 H 74-106 mg/dL Calcium Level 10.2 8.7-10.4 mg/dL Total Bilirubin < 0.2 L 0.2-1.0 mg/dL Aspartate Amino Transferase (AST) < 8 L 13-40 U/L Alanine Aminotransferase (ALT) < 9 7-40 U/L Alkaline Phosphatase 137 H 46-116 U/L Total Protein 6.8 5.7-8.2 g/dL Albumin 3.8 3.2-4.8 g/dL Microbiology Date/Time Source Procedure Growth Status 05/21/24 22:16 Nose MRSA Screen - Final Complete Assessment [id number] R/O AC CHOLECYSTITIS R/O CBD STONE ALP ELEVATED CONSIDER SURGERY INDICATED BASED ON ONGOING EVAL Plan discussed with: Patient PAUL BERNARD MD May 22, 2024 17:50
--- NOTE | 2024-05-22 18:16 | DVHINCON2 ---
DATE OF CONSULTATION: 05/22/2024 HISTORY OF PRESENT ILLNESS: This patient is 63 years old, coming in with right upper abdominal pain, now feeling better. She is eating a diet. No nausea, vomiting. No constipation, diarrhea. No hematemesis, melena. No bleeding per rectum. PAST MEDICAL HISTORY: Hypertension, diabetes, end-stage renal disease. She is on dialysis. PAST SURGICAL HISTORY: Nothing significant. PHYSICAL EXAMINATION: VITAL SIGNS: Afebrile, stable signs. HEENT: With no evidence of pallor, cyanosis, or jaundice. NECK: Supple, nontender with no thyromegaly, lymphadenopathy. CHEST AND LUNGS: Clear. HEART: Within normal limits. ABDOMEN: Soft, tender in the right upper quadrant. Minimal rebound. EXTREMITIES: Unremarkable. NEUROLOGIC: Intact. CLINICAL IMPRESSION: Rule out acute cholecystitis. She has elevated alkaline phosphatase and liver enzymes and to rule out CBD stone. PLAN: Will be is to do MRCP for that and in case surgery is considered, HIDA scan. She is high risk for surgery. MD JAH Flores/DUKE TID: [id number] RECEIPT: [id number] cc: Geoff Zhang MD
[2024-05-22 20:00] VITALS: PULSE 100; RESP 18; O2SAT 94
[2024-05-22 21:00] VITALS: BP 124/97; PULSE 100; RESP 18; TEMP 97.9; O2SAT 94
[2024-05-22] MEDS: HYDROcodone-ACET 5/325MG TAB PO PRN (22:07)
[2024-05-23 05:00] VITALS: BP 111/36; PULSE 94; RESP 18; TEMP 98.1; O2SAT 96
[2024-05-23 07:08] LABS: Basophils # (auto) 0 10 ^3/uL (0-0.2); Eosinophils # (auto) 0.1 10 ^3/uL (0-0.8); Hemoglobin 10.6 g/dL (12.2-16.2); Monocytes # (auto) 1.1 10 ^3/uL (0-1.3)
[2024-05-23 07:10] LABS: Basophils % (auto) 0.5 % (0.0-2.0); Eosinophils % (auto) 1.5 % (0.0-7.0); Hematocrit 31.5 % (36.0-46.0); Lymphocytes % (auto) 11.2 % (10.0-50.0); Mean Corpuscular Hemoglobin 34.4 pg (28.0-32.0); Mean Corpuscular Hgb Conc. 33.6 g/dL (32.0-36.0); Mean Corpuscular Volume 102.4 fL (80.0-100.0); Neutrophils # (auto) 6.5 10 ^3/uL (1.6-8.6); Neutrophils % (auto) 73.8 % (37.0-80.0); Platelet Count (auto) 184 10^3/uL (140-450); Red Blood Cells 3.08 10^6/uL (4.0-5.20); Red Cell Distribution Width 15.8 % (11.8-14.3); White Blood Cell 8.8 10^3/uL (4.4-10.8)
[2024-05-23 07:32] LABS: Alanine Aminotransferase 11 U/L (7-40); Albumin 3.7 g/dL (3.2-4.8); Alkaline Phosphatase 107 U/L (46-116); Anion Gap 9 (5-15); Aspartate Aminotransferase 9 U/L (13-40); BUN/Creatinine Ratio 4.4 (10.0-20.0); Bilirubin, Total 0.3 mg/dL (0.2-1.0); Calcium 10.3 mg/dL (8.7-10.4); Carbon Dioxide 27 mmol/L (20-31); Chloride 97 mmol/L (98-107); Glucose 164 mg/dL (74-106); Potassium 5.1 mmol/L (3.5-5.1); Sodium 133 mmol/L (136-145); Total Protein 6.9 g/dL (5.7-8.2)
[2024-05-23 07:39] LABS: Blood Urea Nitrogen 26 mg/dL (9-23)
[2024-05-23 09:26] VITALS: BP 107/56; PULSE 93; RESP 16; TEMP 99.2; O2SAT 96
--- NOTE | 2024-05-23 12:07 | DVH ---
MRI Abdomen, MRCP without IV Contrast Exam Date: 05/23/2024 10:45 AM Comparison: None History: R/O CBD Technique: Multisequence multiplanar MRI images were obtained of the abomen. MRCP including 3D SPACE, Radial 3D slabs and SPACE 3D MIP images Findings: Liver: The liver is normal in size without focal lesions. Normal liver contour. Spleen: Unremarkable. Pancreas: The pancreas is normal in appearance without focal lesions. Gallbladder and ducts: Cholelithiasis noted without secondary findings of cholecystitis or biliary ob struction. The cystic duct, right and left hepatic ducts, common hepatic duct, and common bile ducts are unremarkable. The pancreatic duct is within normal limits. Adrenal glands: Unremarkable. Kidneys: There is renal cortical thinning bilaterally. There are numerous subcentimeter bilateral tamiko al cysts. No hydronephrosis. Visualized bowel: Grossly unremarkable. Vasculature: Unremarkable. Lymphadenopathy: No evidence for lymphadenopathy. Ascites: Absent. Musculoskeletal: Bone marrow signal is normal. IMPRESSION: 1. Cholelithiasis. No biliary obstruction. Renal cortical thinning with numerous bilateral renal cys ts. No hydronephrosis. HS:Herbie
--- NOTE | 2024-05-23 12:25 | DVHPN2 ---
Progress Note - Dictate Date Seen: May 23, 2024 Medical Necessity Reason Pt with a Central, PICC or Fol: No Subjective PT PRESENTED TO OFFICE WITH SEVERE ABNL PAIN RIGHT UPPER QUADRANT TENDERNESS CT CONSISTENT WITH CHOLELITHIASIS PMH; HTN PAH DIABETES ESRD ON HD vital signs Vital Sign Date Time Temp Pulse Resp B/P (MAP) Pulse Ox O2 Delivery O2 Flow Rate FiO2 05/23/24 10:07 93 107/56 05/23/24 09:26 99.2 16 96 99.2 05/22/24 20:00 Nasal Cannula* 2 28 Total Intake and Output 05/22/24 05/22/24 05/23/24 15:00 23:00 07:00 Intake Total 100 ml 350 ml 400 ml Balance 100 ml 350 ml 400 ml medications Current Medications Medications Dose Ordered Sig/Hector Route Start Time Stop Time Status Last Admin Dose Admin Piperacillin Sod/ Tazobactam Sod 100 ml @ 100 mls/hr Q8HR IV 05/21/24 14:45 UNV Carvedilol 12.5 mg BID PO 05/21/24 22:00 05/23/24 10:07 12.5 MG Multivit/Ca Carb/ B Cmplx/FA/Prenat 1 tab DAILY PO 05/22/24 10:00 05/23/24 10:05 1 TAB Allopurinol 300 mg DAILY PO 05/22/24 10:00 05/23/24 10:07 300 MG Metoclopramide HCl 10 mg BID PO 05/21/24 22:00 05/23/24 10:07 10 MG Patient Own Medication 1 BID PO 05/21/24 22:00 05/23/24 10:05 1 Patient Own Medication 1 DAILY PO 05/22/24 10:00 05/23/24 10:05 1 Glipizide 2.5 mg QAM PO 05/22/24 07:00 05/23/24 06:26 2.5 MG Dextrose/Sodium Chloride 1,000 ml @ 50 mls/hr Q20H IV 05/21/24 16:15 05/23/24 08:15 50 MLS/HR Diagnostic Test (Pha) 1 strip ACHS 05/21/24 17:00 05/23/24 11:55 1 STRIP Insulin Human Regular HS SC 05/21/24 22:00 05/21/24 22:09 8 UNITS Insulin Human Regular AC SC 05/21/24 17:00 05/23/24 12:16 6 UNITS Dextrose 50 ml UD PRN IV 05/21/24 16:15 Acetaminophen/ Hydrocodone Bitart 1 tab TIDP PRN PO 05/21/24 16:15 05/22/24 22:07 1 TAB Piperacillin Sod/ Tazobactam Sod 100 ml @ 25 mls/hr Q12HR IV 05/21/24 22:00 05/23/24 10:02 25 MLS/HR Lidocaine HCl 1 ml ONCE PRN ID 05/22/24 16:45 objective HEENT SCLERA ANICTERIC FUNDI NL EOMI NECK SUPPLE NO ADENOPATHY CAROTID 2+ NL UPSTROKE NO JVD PUL CLEAR CV RR ABD RUQ TENDERNESS NO REBOUND NEURO INTACT laboratory and microbiology Laboratory Tests 05/23/24 05:30 Test 05/23/24 05:30 Range/Units Serum Glucose 164 H 74-106 mg/dL Problem List RIGHT UPPER QUADRANT TENDERNESS CT CONSISTENT WITH CHOLELITHIASIS PMH; HTN PAH DIABETES ESRD ON HD Assessment/Plan ANTIBIOTIC SURGICAL CONSULT PAIN MANAGEMENT SSI LEUKOCYTOSIS s/p mcp NO OBSTRUCTION LFT WNL UNLIKELY TO HAVE ANY OBSTRUCTION Plan discussed with: Patient, Spouse JOSSY BANEGAS MD May 23, 2024 12:25
[2024-05-23] MEDS ORDERED: HYDROmorphone HCL 2 MG/ML VL/or syr ONE (12:57)
[2024-05-23] MEDS ORDERED: MIDAZOLAM HCL 2MG/2ML 2ml VIAL (1mg/ml) ONE (12:58)
[2024-05-23] MEDS ORDERED: fentaNYL CITRATE 100 MCG/2 ML VL ONE (12:58)
[2024-05-23] MEDS ORDERED: KETOROLAC TROMETH 30 MG/ML 1ML VIAL ONE (12:59)
[2024-05-23] MEDS ORDERED: GLYCOPYRROLATE 0.2 MG/ML 1ML VIAL ONE (12:59)
[2024-05-23] MEDS ORDERED: ONDANSETRON HCL 4 MG/2 ML VIAL ONE (12:59)
[2024-05-23] MEDS ORDERED: PROPOFOL 10 MG/ML 20 ML IV ONE (12:59)
[2024-05-23] MEDS ORDERED: ePHEDrine SULFATE 50 MG/ML AMP ONE (12:59)
[2024-05-23] MEDS ORDERED: DexAMETHasone SOD PHOS 10MG/1ML VIAL INJ ONE (12:59)
[2024-05-23] MEDS ORDERED: LIDOCAINE 2% (LOCAL ANESTH.) PF 5ml SDV ONE (12:59)
[2024-05-23] MEDS ORDERED: MEPERIDINE HCL (50 MG/ML) 1 ML VIAL ONE (13:00)
--- NOTE | 2024-05-23 13:20 | DVHPN2 ---
Progress Note - Dictate Date Seen: May 23, 2024 Medical Necessity Reason Pt with a Central, PICC or Fol: No Subjective no new symptoms vital signs Vital Sign Date Time Temp Pulse Resp B/P (MAP) Pulse Ox O2 Delivery O2 Flow Rate FiO2 05/23/24 10:07 93 107/56 05/23/24 09:26 99.2 16 96 99.2 05/22/24 20:00 Nasal Cannula* 2 28 Total Intake and Output 05/22/24 05/22/24 05/23/24 15:00 23:00 07:00 Intake Total 100 ml 350 ml 400 ml Balance 100 ml 350 ml 400 ml medications Current Medications Medications Dose Ordered Sig/Hector Route Start Time Stop Time Status Last Admin Dose Admin Piperacillin Sod/ Tazobactam Sod 100 ml @ 100 mls/hr Q8HR IV 05/21/24 14:45 UNV Carvedilol 12.5 mg BID PO 05/21/24 22:00 05/23/24 10:07 12.5 MG Multivit/Ca Carb/ B Cmplx/FA/Prenat 1 tab DAILY PO 05/22/24 10:00 05/23/24 10:05 1 TAB Allopurinol 300 mg DAILY PO 05/22/24 10:00 05/23/24 10:07 300 MG Metoclopramide HCl 10 mg BID PO 05/21/24 22:00 05/23/24 10:07 10 MG Patient Own Medication 1 BID PO 05/21/24 22:00 05/23/24 10:05 1 Patient Own Medication 1 DAILY PO 05/22/24 10:00 05/23/24 10:05 1 Glipizide 2.5 mg QAM PO 05/22/24 07:00 05/23/24 06:26 2.5 MG Dextrose/Sodium Chloride 1,000 ml @ 50 mls/hr Q20H IV 05/21/24 16:15 05/23/24 08:15 50 MLS/HR Diagnostic Test (Pha) 1 strip ACHS 05/21/24 17:00 05/23/24 11:55 1 STRIP Insulin Human Regular HS SC 05/21/24 22:00 05/21/24 22:09 8 UNITS Insulin Human Regular AC SC 05/21/24 17:00 05/23/24 12:16 6 UNITS Dextrose 50 ml UD PRN IV 05/21/24 16:15 Acetaminophen/ Hydrocodone Bitart 1 tab TIDP PRN PO 05/21/24 16:15 05/22/24 22:07 1 TAB Piperacillin Sod/ Tazobactam Sod 100 ml @ 25 mls/hr Q12HR IV 05/21/24 22:00 05/23/24 10:02 25 MLS/HR Lidocaine HCl 1 ml ONCE PRN ID 05/22/24 16:45 objective Gen: NAD, AAOX3 HEENT: NC,AT Lungs: CTA b/l Cardiac: RRR, no murmur Abd: Soft, no distention Ext: no edema + Lt arm AVF laboratory and microbiology Laboratory Tests 05/23/24 05:30 Test 05/23/24 05:30 Range/Units Serum Glucose 164 H 74-106 mg/dL Assessment/Plan Assessment: ESRD on HD via Lt arm AVF Cholecystitis DM HTN Anemia of CKD Hyperphosphatemia Secondary hyperparathyroidism Hyponatremia Metabolic acidosis Hyperuricemia Plan: HD schedule is MWF s/p HD Monday Next HD on Monday Surgical consult appreciated continue IV antibiotics per primary team Coreg 12.5 mg PO BID Continue Allopurinol DEVI post HD as needed. Hb goal 10-11 g/dl Plan discussed with: Patient, Other GERALDO RILEY MD May 23, 2024 13:20
--- NOTE | 2024-05-23 14:10 | DVHPN2 ---
Progress Note Date Seen: May 23, 2024 Medical Necessity Reason Pt with a Central, PICC or Fol: No Objective vital signs Vital Sign Date Time Temp Pulse Resp B/P (MAP) Pulse Ox O2 Delivery O2 Flow Rate FiO2 05/23/24 11:07 89 127/52 05/23/24 09:26 99.2 16 96 99.2 05/22/24 20:00 Nasal Cannula* 2 28 Total Intake and Output 05/22/24 05/22/24 05/23/24 15:00 23:00 07:00 Intake Total 100 ml 350 ml 400 ml Balance 100 ml 350 ml 400 ml medications Current Medications Medications Dose Ordered Sig/Hector Route Start Time Stop Time Status Last Admin Dose Admin Piperacillin Sod/ Tazobactam Sod 100 ml @ 100 mls/hr Q8HR IV 05/21/24 14:45 UNV Carvedilol 12.5 mg BID PO 05/21/24 22:00 05/23/24 10:07 12.5 MG Multivit/Ca Carb/ B Cmplx/FA/Prenat 1 tab DAILY PO 05/22/24 10:00 05/23/24 10:05 1 TAB Allopurinol 300 mg DAILY PO 05/22/24 10:00 05/23/24 10:07 300 MG Metoclopramide HCl 10 mg BID PO 05/21/24 22:00 05/23/24 10:07 10 MG Patient Own Medication 1 BID PO 05/21/24 22:00 05/23/24 10:05 1 Patient Own Medication 1 DAILY PO 05/22/24 10:00 05/23/24 10:05 1 Glipizide 2.5 mg QAM PO 05/22/24 07:00 05/23/24 06:26 2.5 MG Dextrose/Sodium Chloride 1,000 ml @ 50 mls/hr Q20H IV 05/21/24 16:15 05/23/24 08:15 50 MLS/HR Diagnostic Test (Pha) 1 strip ACHS 05/21/24 17:00 05/23/24 11:55 1 STRIP Insulin Human Regular HS SC 05/21/24 22:00 05/21/24 22:09 8 UNITS Insulin Human Regular AC SC 05/21/24 17:00 05/23/24 12:16 6 UNITS Dextrose 50 ml UD PRN IV 05/21/24 16:15 Acetaminophen/ Hydrocodone Bitart 1 tab TIDP PRN PO 05/21/24 16:15 05/22/24 22:07 1 TAB Piperacillin Sod/ Tazobactam Sod 100 ml @ 25 mls/hr Q12HR IV 05/21/24 22:00 05/23/24 10:02 25 MLS/HR Lidocaine HCl 1 ml ONCE PRN ID 05/22/24 16:45 laboratory and microbiology Laboratory Tests 05/23/24 05:30 Test 05/23/24 05:30 Range/Units Serum Glucose 164 H 74-106 mg/dL Microbiology Date/Time Source Procedure Growth Status 05/21/24 22:16 Nose MRSA Screen - Final Complete Problem List/Assessment/Plan Problem List/Assessment/Plan AFEBRILE VSS ABD SOFT NON TENDER PAIN RESOLVED LFT WNL MRCP NO CBD STONE NO ACUTE CHOLECYSTITIS HIGH RISK FOR SURGERY PT WANTS TO HOLD ON HER SURGERY ADVANCE DIET [place] CLEARED FOR DISCHARGE Plan discussed with: Patient My Orders My Orders Orders - PAUL BERNARD MD Procedure Category Date Status Time Mrcp Mri MRI 05/23/24 Resulted 10:37 PAUL BERNARD MD May 23, 2024 14:10
[2024-05-23 14:24] VITALS: BP 127/52; PULSE 89; RESP 18; TEMP 98.8; O2SAT 95
[2024-05-23 17:00] VITALS: BP 119/57; PULSE 87; RESP 18; TEMP 98.9; O2SAT 95
[2024-05-24] MEDS ORDERED: SODIUM CHL 0.9% 1000 ML BAG XX ONE (07:00)
== END 2024-05-23 18:19 | disposition left against medical advice (07) | DRG 444 ==
LOC: CENTRAL 13:39
PROVIDERS: ADMIT Internal Medicine Cardiovascular Disease; ATTEND Internal Medicine Cardiovascular Disease
PROC: 5A1D70Z Performance of Urinary Filtration, Intermittent, Less than 6 Hours Per Day (ICD-10-PCS; principal; 2024-05-22)
DX: K80.20 Calculus of gallbladder without cholecystitis without obstruction (principal); N18.6 End stage renal disease; E87.1 Hypo-osmolality and hyponatremia; E87.20 Acidosis, unspecified; N25.81 Secondary hyperparathyroidism of renal origin; I12.0 Hypertensive chronic kidney disease with stage 5 chronic kidney disease or end stage renal disease; Z53.29 Procedure and treatment not carried out because of patient's decision for other reasons; D63.1 Anemia in chronic kidney disease; E11.22 Type 2 diabetes mellitus with diabetic chronic kidney disease; E83.39 Other disorders of phosphorus metabolism; Z99.2 Dependence on renal dialysis; Z82.49 Family history of ischemic heart disease and other diseases of the circulatory system; Z79.4 Long term (current) use of insulin; Z79.899 Other long term (current) drug therapy
CPT/HCPCS: 36415; 71045; 74177; 74181; 76705; 80053; 82962; 85025; 85610; 85730; 86706; 87081; 90935; 96365; G0378; G0463; J1100; J1815; J1885; J1956; J2003; J2250; J2405; J2543; J2704

== ENCOUNTER 2025-04-11 12:31 | Outpatient (CLI) | payer MEDICARE ==
[~2025-04-11 12:31] MED LIST changes: +CALC667C PO; +CARV12.544 PO; +FURO1TAB77 PO; +MACI1TAB2 PO; +RIOC1TAB15 PO
--- NOTE | 2025-04-11 14:08 | DVHSR ---
APPROVED REPORT EXAM: Two-dimensional and M-mode echocardiogram with Doppler and color Doppler. DIMENSIONS LVDd5.0 (3.8-5.7cm)LA (2D)3.3 (1.9-4.0cm)Aortic Root3.0 (2.0-3.7cm) LVDs3.8 (2.5-4.0cm)LA (MM) (1.9-4.0cm)Aortic Cusp Exc1.6 (1.5-2.0cm) EF (%) 47.0 (55-70%)Rt. Atrium3.4 (1.9-4.0cm)Asc. Aorta cm IVSd1.4 (0.7-1.1cm)RV (D) (1.8-2.4cm) PWd1.3 (0.7-1.1cm) Mitral Valve MitralMitral Stenosis E wave0.80m/sMV Mean GR.mmHg A wave1.20m/sMV Peak GR.mmHg E/A ratio0.72D MVAcm2 Aortic Valve Aortic ValveAortic Stenosis V10.80m/Sharmila Mean GR.7mmHg V21.60m/Sharmila Peak GR.11mmHg LVOT Diameter2.0 (1.8-2.4cm)Doppler AVA1.57cm2 Pulmonic Valve V20.80m/s LEFT VENTRICLE The left ventricle is normal size. There is borderline to mild left ventricular hypertrophy. The Ejection Fraction is 45-50%. Left ventricle ejection fraction is low normal. RIGHT VENTRICLE The right ventricle is normal size. ATRIA The left atrial size is normal. The right atrium size is normal. The interatrial septum is intact with no evidence for an atrial septal defect. MITRAL VALVE The mitral valve is normal in structure and function. There is no mitral valve regurgitation noted. PULMONIC VALVE The pulmonic valve is not well visualized. TRICUSPID VALVE The tricuspid valve is grossly normal. AORTIC VALVE The aortic valve opens well. No aortic regurgitation is present. GREAT VESSELS The aortic root is normal size. PERICARDIAL EFFUSION There is no pericardial effusion. Conclusion EF 45%
== END 2025-04-11 15:00 | disposition home or self-care (01) ==
LOC: Rad HDHVI 12:31
PROVIDERS: ATTEND Internal Medicine Cardiovascular Disease
DX: R06.02 Shortness of breath (principal); R07.89 Other chest pain
CPT/HCPCS: 93306